=== PATIENT | female | born 1960 | race Caucasian/White ===

== ENCOUNTER 2023-09-09 11:12 | Outpatient (CLI) | payer MEDICAID | END 2023-09-09 23:59 | disposition home or self-care (01) | LOC: CARD DIAG 11:12 | PROVIDERS: ATTEND Family Medicine | DX: I08.3 Combined rheumatic disorders of mitral, aortic and tricuspid valves (principal); R42 Dizziness and giddiness; R01.1 Cardiac murmur, unspecified | CPT/HCPCS: 93306 ==

== ENCOUNTER 2023-09-24 08:21 | Day surgery (SDC) | payer MEDICAID ==
[2023-09-24] VITALS (13 sets, daily range): BP systolic 96–149; BP diastolic 46–59; PULSE 50–68; RESP 16; TEMP 97.7; O2SAT 91–99
[~2023-09-24] VITALS: Ht 149.9 cm; Wt 36.0 kg
[2023-09-24] MEDS ORDERED: VARE1TAB29 PO (08:54)
[2023-09-24] MEDS ORDERED: ESCI20TA39 PO (08:54)
[2023-09-24] MEDS ORDERED: ALBU18HF2 INH (08:54)
[2023-09-24 09:10] LABS: BASOPHILS # (AUTO) 0.1 X10'3 (0-0.2); BASOPHILS % (AUTO) 1.4 % (0-1); EOSINOPHILS # (AUTO) 0.3 X10'3 (0-0.9); EOSINOPHILS % (AUTO) 4.9 % (0-6); HEMATOCRIT 37.1 % (35.0-45.0); HEMOGLOBIN 12.5 g/dl (12.0-16.0); LYMPHOCYTES # (AUTO) 2.2 X10'3 (1.1-4.8); LYMPHOCYTES % (AUTO) 34.2 % (21-51); MEAN CORPUSCULAR HEMOGLOBIN 32.9 PG (27.0-31.0); MEAN CORPUSCULAR HGB CONC 33.6 g/dL (33.0-36.5); MEAN CORPUSCULAR VOLUME 97.9 FL (78-98); MEAN PLATELET VOLUME 7.9 FL (7.4-10.4); MONOCYTES # (AUTO) 0.5 X10'3 (0-0.9); MONOCYTES % (AUTO) 7.5 % (2-12); NEUTROPHILS # (AUTO) 3.4 X10'3 (1.8-7.7); PLATELET COUNT 221 X10'3 (140-440); RED BLOOD COUNT 3.78 X10'6 (4.20-5.60); RED CELL DISTRIBUTION WIDTH 13.3 % (11.5-14.5); WHITE BLOOD COUNT 6.6 X10'3 (4.5-11.0)
[2023-09-24 09:29] LABS: APTT 26 SECONDS (22-32); PROTHROMBIN TIME 10.8 SECONDS (9.0-12.0)
[2023-09-24 09:36] LABS: ALBUMIN 3.7 G/DL (3.4-5.0); ANION GAP 8 (8-16); BLOOD UREA NITROGEN 5 MG/DL (7-18); BUN/CREATININE RATIO 7.7 (10.0-20.0); CALCIUM 8.7 MG/DL (8.5-10.1); CHLORIDE 102 MMOL/L (99-107); CREATININE 0.65 MG/DL (0.40-0.90); GLUCOSE 101 MG/DL (70-104); POTASSIUM 3.8 MMOL/L (3.5-5.1); PRO BRAIN NATRIURETIC PEPTIDE 168 PG/ML (0-125); SODIUM 136 MMOL/L (135-145); TOTAL CARBON DIOXIDE 26.4 MMOL/L (24-32); eGFR > 90 ML/MIN
[2023-09-24] MEDS ORDERED: midazolam 1 mg/ML 2ml injection ONE (09:49)
[2023-09-24] MEDS: LORazepam 0.5 MG tablet PO PRN (09:49)
[2023-09-24] MEDS: diphenhydrAMINE 25mg capsule PO PRN (09:49)
[2023-09-24] MEDS ORDERED: LIDOcaine 1% 30ml preserv. free vial ONE (09:49)
[2023-09-24] MEDS ORDERED: fentaNYL/PF 50MCG/1 ML 2ML syringe ONE (09:50)
[2023-09-24] MEDS ORDERED: iohexol 350MG/ML 100ml bottle IV ONE (09:50)
[2023-09-24] MEDS: normal saline 1,000 ML IV SCH (09:50)
[2023-09-24] MEDS ORDERED: normal saline 1,000 ML IV SCH (10:10)
[2023-09-24] MEDS ORDERED: LORazepam 0.5 MG tablet PO PRN (10:10)
[2023-09-24] MEDS ORDERED: diphenhydrAMINE 25mg capsule PO PRN (10:10)
[2023-09-24] MEDS ORDERED: iohexol 350 MG/ML 50ML vial IV ONE ×2 (10:43→10:57)
[2023-09-24] MEDS ORDERED: OXAZEpam 15mg capsule PO PRN (12:10)
[2023-09-24] MEDS ORDERED: HYDROcodone/acetaminophen 10/325mg tab PO PRN (12:10)
[2023-09-24] MEDS ORDERED: nitroGLYCERIN 0.4mg SUBLingual tab SL PRN (12:10)
[2023-09-24] MEDS ORDERED: proCHLORperazine 10 MG/2 ml inj IV PRN (12:10)
[2023-09-24] MEDS ORDERED: HYDROcodone/acetaminophen 5mg/325mg tablet PO PRN (12:10)
[2023-09-24] MEDS ORDERED: normal saline 1000ml 1,000 ML IV SCH (12:10)
[2023-09-24] MEDS: ondansetron/PF 4mg/2ml inj IV PRN (15:48)
== END 2023-09-24 18:10 | disposition home or self-care (01) ==
LOC: SSTAY O 08:21
PROVIDERS: ATTEND Internal Medicine Cardiovascular Disease
DX: R06.00 Dyspnea, unspecified (principal); I44.4 Left anterior fascicular block; I51.7 Cardiomegaly; I08.2 Rheumatic disorders of both aortic and tricuspid valves; J44.9 Chronic obstructive pulmonary disease, unspecified; F32.9 Major depressive disorder, single episode, unspecified
CPT/HCPCS: 36415; 71046; 80048; 83880; 85025; 85610; 85730; 93005; 93458; 93567; 93880; 99152; 99153; J1644; J2250; J2405; J3010; J3490; J7030; Q0163; Q9967; A6258; C1769